=== PATIENT | male | born 1980 | race Caucasian/White ===

== ENCOUNTER 2020-05-26 04:44 | Emergency (ER) | payer SELFPAY ==
[~2020-05-26] VITALS: Ht 165.1 cm; Wt 74.0 kg
[2020-05-26 04:51] VITALS: BP 125/60
== END 2020-05-26 08:50 | disposition left against medical advice (07) ==
LOC: ER 05:06
DX: S09.8XXA Other specified injuries of head, initial encounter (principal); W18.39XA Other fall on same level, initial encounter; Y93.89 Activity, other specified; Y92.89 Other specified places as the place of occurrence of the external cause; Y99.8 Other external cause status; F10.129 Alcohol abuse with intoxication, unspecified; Y90.0 Blood alcohol level of less than 20 mg/100 ml; F41.9 Anxiety disorder, unspecified; Z85.9 Personal history of malignant neoplasm, unspecified
CPT/HCPCS: 99283